=== PATIENT | female | born 1970 | race African-American/Black ===

== ENCOUNTER 2020-05-23 23:42 | Observation (INO) | payer OTHER, SELFPAY ==
[2020-05-24] MEDS ORDERED: Acetaminophen 650 MG Suppository PR PRN (01:05)
[2020-05-24] MEDS ORDERED: Acetaminophen 325 MG TAB PO PRN (01:05)
[2020-05-24] MEDS ORDERED: HYDROcodone/Acetaminophen 5/325 mg Tablet PO PRN ×2 (01:05)
[2020-05-24] MEDS ORDERED: Calcium Carbonate 500 MG ChewTAB PO PRN (01:05)
[2020-05-24] MEDS ORDERED: Guaifenesin DM 100-10/5 ML UDCUP PO PRN (01:05)
--- NOTE | 2020-05-24 01:14 | PDOC.HHP ---
Hospitalist HPI - History of Present Illness dyspnea cough chest pain History of Present Illness: Case of an 49y/o female with pmhx of htn dm hypercholesterolemia hypothyroidism and morbid obesity who comes to hospital transfer from another ED due to covid pneumonia and chest pain. patient refers she was on her usual state of health until about almost a week ago when she started having some cough. her daughter had recently tested positive for the virus for which she went to get tested on may 18. she visited and ED where she got the tested and was sent home. patient refers her dsypnea and coughing worsen and she started to get chest pain for which she returned to the ED on may 23. there she was dx with covid pneumoia with hypoxia and sent here for further evaluation and management. patient denies any fever chills n/v diarrhea, also denies diaphoresis palpitations. as stated patient did complain of some chest pain 6/10 of dull quality non radiating worsen with deep breathing Hospitalist ROS - Review of Systems All other systems reviewed; all pertinent +/- noted in HPI/Subj Hospitalist History - Past Surgical History Past Surgical History: reports: Cholecystectomy, Hysterectomy - Family History Family History: reports: diabetes mellitus, hypertension - Social History Smoking Status: Former smoker Alcohol: reports: None Drugs: reports: none - Exam General Appearance: NAD, awake alert Eye: PERRL, anicteric sclera ENT: normocephalic atraumatic, no oropharyngeal lesions Neck: supple, symmetric, no JVD Heart: RRR, no murmur, no gallops Respiratory: CTAB, no wheezes, no rales Gastrointestinal: soft, non-tender, non-distended Extremities: no cyanosis, no clubbing, no edema Skin: normal turgor, no lesions, no rashes Neurological: cranial nerve grossly intact, normal sensation to touch Musculoskeletal: normal tone, normal strength, no muscle wasting Psychiatric: normal affect, normal behavior, A&O x 3 Hospitalist H&P A/P - Problem (1) COVID-19 Code(s): U07.1 - COVID-19 Status: Acute (2) Hypoxia Code(s): R09.02 - HYPOXEMIA Status: Acute (3) Diabetes Code(s): E11.9 - TYPE 2 DIABETES MELLITUS WITHOUT COMPLICATIONS Status: Acute (4) HTN (hypertension) Code(s): I10 - ESSENTIAL (PRIMARY) HYPERTENSION Status: Acute (5) Chest pain Code(s): R07.9 - CHEST PAIN, UNSPECIFIED Status: Acute - Plan Plan: 49y/o female with the stated pmhx who comes due to covid 19 pneumonia hypoxia and chest pain covid 19 pnuemonia / hypoxia - positive test - cxr suggestive of viral pneumonia - started on rocephin and azithromycin - hypoxic with RA sat in the 90s, - 02 supplementation - f/u inflammation markers - f/u cultures - dexamethazone 6mg iv d - dvt prophylaxis chest pain - seems pluritic - negative trop - serial troponins - ekg w/o ischemic st changes - cardiac telemetry dm - ss and acc - adjust as necessary htn / hypothyrodism / hypercholesterolemia - continue home meds
[2020-05-24 01:29] VITALS: BMI 47.0
[2020-05-24] MEDS: Sodium Chloride 0.9% 1,000 ML IV SCH ×2 (01:44→21:09)
[2020-05-24] MEDS: cefTRIAXone\\ROCEPHIN 1 GM in Sodium Chloride 0.9% 100 ML IVPB SCH (01:45)
[2020-05-24] MEDS ORDERED: Dextrose 50% Abboject 50 ML SYRINGE SLOW IVP PRN (01:52)
[2020-05-24] MEDS ORDERED: Dextrose 5% in Water 1,000 ML IV PRN (01:52)
[2020-05-24] MEDS: Azithromycin 500 MG in Sodium Chloride 0.9% 250 ML 250 ML IVPB SCH (02:02)
[2020-05-24 02:51] LABS: Troponin I 0.014 ng/mL (< 0.028)
[2020-05-24 02:53] LABS: ALT (SGPT) 35 U/L (8-55); AST (SGOT) 32 U/L (5-34); Albumin 4.4 g/dL (3.5-5.0); Alkaline Phosphatase 65 U/L (40-110); Anion Gap 16 mmol/L (10-20); BUN (Urea Nitrogen) 5 mg/dL (7.0-18.7); CRP (Inflammatory) 0.89 mg/dL (= or < 0.5); Calc. Creatinine Clearance 158 mL/min (70-130); Calcium 9.3 mg/dL (7.8-10.44); Carbon Dioxide 23 mmol/L (22-29); Chloride 99 mmol/L (98-107); Estimated GFR-MDRD Greater than 90; Glucose 253 mg/dL (70-105); Potassium 3.2 mmol/L (3.5-5.1); Protein, Total 7.4 g/dL (6.0-8.3); Sodium 135 mmol/L (136-145)
[2020-05-24 02:54] LABS: Band 6 % (5-11); Hemoglobin 14.5 g/dL (12.0-16.0); Lymphocytes 45 % (21-51); MDiff Complete? YES; Mean Corpuscular HGB CONC 33.7 g/dL (32.0-36.0); Mean Corpuscular Hemoglobin 28.2 pg (27.0-31.0); Mean Corpuscular Volume 83.6 fL (78.0-98.0); Mean Platelet Volume 9.1 fL (7.4-10.4); Monocytes 4 % (0-10); Neutrophil 45 % (42-75); Platelet Count 136 thou/uL (130-400); Platelet Morphology Comment Appears Adequate; RBC Distribution Width 11.2 % (11.5-14.5); Red Blood Cell (RBC) Count 5.16 mill/uL (4.20-5.40)
[2020-05-24 03:37] LABS: Bacteria/HPF 3+ HPF (None Seen); Bilirubin Negative (Negative); Blood, Urine Negative (Negative); Clarity Clear (Clear); Glucose, Urine (Dipstick) >=1000 mg/dL (Negative); Ketone, Urine 60 mg/dL (Negative); Leukocyte Negative Leu/uL (Negative); Nitrite Negative (Negative); Protein, Urine (Dipstick) Negative (Neg-Trace); RBC/HPF 0-3 HPF (0-3); Squamous Epithelial 0-3 HPF (0-3)
[2020-05-24 05:56] LABS: Troponin I 0.011 ng/mL (< 0.028)
[2020-05-24] MEDS: Levothyroxine 175 MCG TAB PO SCH (06:05)
[2020-05-24] MEDS: Insulin Regular 300 UNITS/3 ML VIAL SC PRN ×4 (06:08→21:20)
[2020-05-24] MEDS: Dexamethasone 4 mg/ml Vial SLOW IVP SCH (08:34)
[2020-05-24] MEDS: Lisinopril/Hydrochlorothiazide 10 mg/12.5 mg Tablet PO SCH ×2 (08:35→12:53)
[2020-05-24] MEDS: Enoxaparin Sodium 40 MG/0.4 ML SYRINGE SC SCH (08:35)
--- NOTE | 2020-05-24 18:27 | CON ---
DATE OF CONSULTATION: 05/24/2020 REASON: COVID pneumonia. HISTORY OF PRESENT ILLNESS: A 49-year-old with history of obesity, type 2 diabetes, hypothyroidism, and hypertension, who has been ill since the of this month about 6 days ago with some chest pain and some cough with little sputum production. No fever or chills. No headaches. No change in taste or ability to smell. No abdominal pain or diarrhea. No genitourinary symptoms. PAST MEDICAL HISTORY: Type 2 diabetes, hypertension, hyperlipidemia, hypothyroidism, and GERD. 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 Former smoker. . ALLERGIES: NONE. FAMILY HISTORY: There is a history of COVID in her daughter. PHYSICAL EXAMINATION: VITAL SIGNS: Temperature max 99.3, blood pressure 113/72, pulse 88, breathing 16 times a minute, and O2 saturations are 100% on room air. SKIN: Normal. No lymphadenopathy. HEENT: Unremarkable. LUNGS: Clear to auscultation and percussion. HEART: S1 and S2, regular rate. ABDOMEN: Soft, not distended or tender. No ascites. No bladder distention. MUSCULOSKELETAL: No joint inflammatory activity. NEUROLOGIC: Nonfocal. LABORATORY DATA: White cell count 3.0, hemoglobin 14, platelets 136, within normal differential. D-dimer 1.16. Sodium 135, potassium 3.2, creatinine 0.76. Liver profile normal. CRP 0.89. Chest x-ray with bilateral opacities. ASSESSMENT: Type 2 diabetes, hypertension, obesity, and COVID pneumonia. The patient is saturating quite well on room air, not having a lot of symptoms, but the chest x-ray shows diffuse bilateral opacities. She is at her 6th-day of illness and there is a significant risk of progression of her illness as it goes into this second stage with potential for a serious inflammatory process. We will have to continue monitoring closely. At the moment, she would not merit Decadron or any other intervention. I do not think she needs Rocephin or azithromycin. She has already been started on Decadron. Monitor inflammatory markers to help with discharge planning depending on clinical course. She is not eligible for remdesivir/or plasma at this point in time. Job ID: [id number]
[2020-05-24] MEDS: Atorvastatin Calcium 10 MG TAB PO SCH (21:09)
[2020-05-25] MEDS: cefTRIAXone\\ROCEPHIN 1 GM in Sodium Chloride 0.9% 100 ML IVPB SCH (01:17)
[2020-05-25] MEDS: Azithromycin 500 MG in Sodium Chloride 0.9% 250 ML 250 ML IVPB SCH (02:01)
[2020-05-25] MEDS: Insulin Regular 300 UNITS/3 ML VIAL SC PRN ×3 (03:58→17:37)
[2020-05-25] MEDS: Levothyroxine 175 MCG TAB PO SCH (03:58)
[2020-05-25 08:29] LABS: #Lymphocytes 1.3 thou/uL (1.20-3.40); #Monocytes 0.2 thou/uL (0.11-0.59); #Neutrophils 2.2 thou/uL (1.40-6.50); %Basophils 0.7 % (0.0-1.0); %Eosinophils 0.2 % (0.0-10.0); %Lymphocytes 35.1 % (21.0-51.0); %Monocytes 5.1 % (0.0-10.0); %Neutrophils 58.9 % (42.0-75.0); Hemoglobin 12.6 g/dL (12.0-16.0); Mean Corpuscular HGB CONC 33.1 g/dL (32.0-36.0); Mean Corpuscular Hemoglobin 27.7 pg (27.0-31.0); Mean Corpuscular Volume 83.7 fL (78.0-98.0); Platelet Count 155 thou/uL (130-400); RBC Distribution Width 11.1 % (11.5-14.5); Red Blood Cell (RBC) Count 4.55 mill/uL (4.20-5.40); White Blood Cell (WBC) Count 3.8 thou/uL (4.8-10.8)
[2020-05-25 08:48] LABS: Anion Gap 11 mmol/L (10-20); BUN (Urea Nitrogen) 4 mg/dL (7.0-18.7); Calc. Creatinine Clearance 174 mL/min (70-130); Calcium 9.3 mg/dL (7.8-10.44); Carbon Dioxide 26 mmol/L (22-29); Chloride 102 mmol/L (98-107); Estimated GFR-MDRD Greater than 90; Glucose 218 mg/dL (70-105); Potassium 3.3 mmol/L (3.5-5.1); Sodium 136 mmol/L (136-145)
[2020-05-25] MEDS: Dexamethasone 4 mg/ml Vial SLOW IVP SCH (08:50)
[2020-05-25] MEDS: Enoxaparin Sodium 40 MG/0.4 ML SYRINGE SC SCH ×2 (08:51→19:29)
[2020-05-25] MEDS: Lisinopril/Hydrochlorothiazide 10 mg/12.5 mg Tablet PO SCH (08:51)
[2020-05-25] MEDS ORDERED: Furosemide 20 MG/2 ML VIAL SLOW IVP SCH (10:00)
[2020-05-25] MEDS ORDERED: Potassium Chloride 20 MEQ TAB PO SCH (15:15)
--- NOTE | 2020-05-25 17:48 | PDOC.HOSPP ---
- Subjective Encounter Date: 05/25/20 Encounter Time: 16:30 Subjective: Patient was seen for follow-up regarding COVID-19 pneumonia. She reports feeling better. She reports cough. She denies fevers. - Objective Vital Signs & Weight: Vital Signs (12 hours) Temp Pulse Resp BP Pulse Ox 05/25/20 15:45 99.0 F 93 19 114/68 97 05/25/20 11:50 98.6 F 88 16 112/74 100 05/25/20 09:15 98.2 F 95 20 127/80 100 05/25/20 08:51 84 Weight Admit Weight 241 lb Weight 241 lb I&O: 05/24/20 05/25/20 05/26/20 06:59 06:59 06:59 Intake Total 1804 Output Total 2300 Balance -496 Result Diagrams: 05/25/20 08:03 05/25/20 08:03 Additional Labs: Accuchecks 05/25/20 05/25/20 05/25/20 15:41 13:01 03:58 POC Glucose 314 H 329 H 217 H 05/24/20 21:05 POC Glucose 231 H Labs and MAR were reviewed by me. Hospitalist ROS - Review of Systems Constitutional: denies: fever, chills, sweats, weakness, malaise Respiratory: reports: cough, dry. denies: shortness of breath, hemoptysis, SOB with excertion, pleuritic pain, sputum, wheezing Cardiovascular: denies: chest pain, palpitations, orthopnea, paroxysmal noc. dyspnea, edema, light headedness Gastrointestinal: denies: nausea, vomiting, abdominal pain, diarrhea, constipation, melena, hematochezia Genitourinary: denies: dysuria, frequency, incontinence, hematuria, retention - Medication Medications: Active Medications Generic Name Dose Route Start Last Admin Trade Name Freq PRN Reason Stop Dose Admin Hydrocodone Bitart/Acetaminophen 1 tab 05/24/20 01:05 05/25/20 16:22 [place] 5/325 PO 1 tab Q4H PRN Administration Moderate Pain (4-6) Atorvastatin Calcium 10 mg 05/24/20 21:00 05/24/20 21:09 Lipitor PO 10 mg HS BALBINA Administration Dexamethasone 6 mg 05/24/20 09:00 05/25/20 08:50 Decadron SLOW IVP 6 mg DAILY BALBINA Administration Lisinopril/HCTZ 1 tab 05/24/20 09:00 05/25/20 08:51 Prinizide 10-12.5 PO 1 tab DAILY BALBINA Administration Azithromycin 500 mg/ Sodium 250 mls @ 250 mls/hr 05/24/20 02:00 05/25/20 02: 01 Chloride IVPB 250 mls Q24HR BALBINA Administration Ceftriaxone Sodium 1 gm/ 100 mls @ 200 mls/hr 05/24/20 01:30 05/25/20 01:17 Sodium Chloride IVPB 100 mls Q24HR BALBINA Administration Sodium Chloride 1,000 mls @ 50 mls/hr 05/24/20 01:15 05/24/20 21:09 Normal Saline 0.9% IV 1,000 mls .Q20H BALBINA Administration Insulin Human Regular 0 units 05/24/20 01:52 05/25/20 17:37 Humulin R SC 5 units .MILD SLIDING SCALE PRN Administration Mild Correctional Scale Levothyroxine Sodium 175 mcg 05/24/20 06:00 05/25/20 03:58 Synthroid PO 175 mcg 0600 BALBINA Administration Sodium Chloride 10 ml 05/24/20 09:00 05/25/20 08:51 Flush - Normal Saline IVF 10 ml Q12HR BALBINA Administration - Exam General - other findings: Morbid obesity Eye: anicteric sclera ENT: moist mucosa Neck: supple, symmetric, no thyromegaly, no lymphadenopathy Heart: RRR, no gallops, no rubs, normal peripheral pulses Respiratory: CTAB, no wheezes, no rales, no ronchi, normal chest expansion Gastrointestinal: soft, non-tender, normal bowel sounds, distended Extremities: no cyanosis Psychiatric: normal affect, normal behavior, A&O x 3 Hosp A/P - Plan -Assessment (1) COVID-19 Code(s): U07.1 - COVID-19 Status: Acute (2) Hypoxia Code(s): R09.02 - HYPOXEMIA Status: Acute (3) Diabetes Code(s): E11.9 - TYPE 2 DIABETES MELLITUS WITHOUT COMPLICATIONS Status: Chronic (4) HTN (hypertension) Code(s): I10 - ESSENTIAL (PRIMARY) HYPERTENSION Status: Chronic (5) Chest pain Code(s): R07.9 - CHEST PAIN, UNSPECIFIED Status: Chronic - Plan covid 19 pnuemonia / hypoxia - continue dexamethasone - f/u inflammation markers - dvt prophylaxis dm - continue accuchecks and ISS htn / hypothyrodism / hypercholesterolemia - stable chest pain - resolved
[2020-05-25] MEDS ORDERED: HumaLOG 300 UNITS/3 ML VIAL SC PRN (19:04)
[2020-05-25] MEDS: Atorvastatin Calcium 10 MG TAB PO SCH (19:29)
[2020-05-25] MEDS: Sodium Chloride 0.9% 1,000 ML IV SCH (19:30)
[2020-05-26] MEDS: cefTRIAXone\\ROCEPHIN 1 GM in Sodium Chloride 0.9% 100 ML IVPB SCH (01:00)
[2020-05-26] MEDS: Azithromycin 500 MG in Sodium Chloride 0.9% 250 ML 250 ML IVPB SCH (03:34)
[2020-05-26 05:28] LABS: Anion Gap 15 mmol/L (10-20); BUN (Urea Nitrogen) 6 mg/dL (7.0-18.7); CRP (Inflammatory) 1.43 mg/dL (= or < 0.5); Calc. Creatinine Clearance 179 mL/min (70-130); Calcium 9.7 mg/dL (7.8-10.44); Carbon Dioxide 24 mmol/L (22-29); Chloride 102 mmol/L (98-107); Estimated GFR-MDRD Greater than 90; Glucose 216 mg/dL (70-105); Potassium 3.9 mmol/L (3.5-5.1); Sodium 137 mmol/L (136-145)
[2020-05-26 05:52] LABS: Band 13 % (5-11); Eosinophils 1 % (0-10); Hemoglobin 12.7 g/dL (12.0-16.0); Lymphocytes 27 % (21-51); MDiff Complete? YES; Mean Corpuscular HGB CONC 32.9 g/dL (32.0-36.0); Mean Corpuscular Hemoglobin 27.4 pg (27.0-31.0); Mean Corpuscular Volume 83.4 fL (78.0-98.0); Mean Platelet Volume 8.9 fL (7.4-10.4); Monocytes 4 % (0-10); Neutrophil 55 % (42-75); Platelet Count 186 thou/uL (130-400); Platelet Morphology Comment Appears Adequate; RBC Distribution Width 11.2 % (11.5-14.5); Red Blood Cell (RBC) Count 4.63 mill/uL (4.20-5.40); White Blood Cell (WBC) Count 4.7 thou/uL (4.8-10.8)
[2020-05-26] MEDS: Levothyroxine 175 MCG TAB PO SCH (05:54)
[2020-05-26] MEDS: Insulin Regular 300 UNITS/3 ML VIAL SC PRN (05:54)
[2020-05-26] MEDS: Dexamethasone 4 mg/ml Vial SLOW IVP SCH (08:59)
[2020-05-26] MEDS: Lisinopril/Hydrochlorothiazide 10 mg/12.5 mg Tablet PO SCH (08:59)
[2020-05-26] MEDS: Enoxaparin Sodium 40 MG/0.4 ML SYRINGE SC SCH (09:00)
[2020-05-26 10:19] VITALS: BP 121/77; TEMP 98.2
[2020-05-26] MEDS ORDERED: Cefdinir 300 MG CAP PO SCH (11:15)
--- NOTE | 2020-05-26 12:43 | DIS ---
DATE OF ADMISSION: 05/24/2020 DATE OF DISCHARGE: 05/26/2020 PRIMARY CARE PROVIDER: [facility] in [place]. DISCHARGE DIAGNOSES: 1. COVID-19 pneumonia. 2. Hypokalemia. 3. Uncontrolled diabetes mellitus. CONDITION: Condition of the patient on the day of discharge: Stable. I assessed Ms. Kelly on the day of discharge. She denies any chest pain or shortness of breath. Vital signs are stable. DISCHARGE MEDICATIONS: 1. Dexamethasone 6 mg daily for one more week. 2. Cefdinir 600 mg daily for one more week. 3. She has been advised to increase her glipizide to 10 mg 2 times a day while she is taking dexamethasone, then to decrease to 10 mg daily. 4. Lisinopril/hydrochlorothiazide 10/12.5 mg daily. 5. Lovastatin 40 mg at bedtime. 6. Metformin 1000 mg 2 times a day. CONSULTATIONS DURING THIS HOSPITALIZATION: Infectious Diseases, Dr. Santacruz. HOSPITAL COURSE: Ms. Kelly is a pleasant 49-year-old lady, who was admitted to [facility] on May 24, 2020, for COVID-19 pneumonia. Chest x-ray at the time of admission also suggested some pulmonary vascular congestion. However, her BNP was less than 10. She was not hypoxic. She was started on dexamethasone and intravenous antibiotics. She was seen by Infectious Disease Service. Her inflammatory markers were also trending down. She has been advised to check her blood sugars 3 times a day and show the readings to her primary care provider. She is also aware of the possibility of decompensation following discharge. She has been advised to check her oxygen levels and to seek medical help if her oxygen saturations drop below 90%. POST-ACUTE CARE FOLLOWUP: With primary care provider in 1 day. DIET: Heart-healthy and diabetic. ACTIVITY: As tolerated. DISCHARGE DESTINATION: Home. TIME SPENT: Total amount of time spent in coordinating this discharge: 32 minutes. Job ID: [id number]
== END 2020-05-26 13:30 | disposition home or self-care (01) ==
LOC: 2SW 05-24 00:54
PROVIDERS: ADMIT Internal Medicine; ATTEND Internal Medicine
DX: U07.1 COVID-19 (principal); J12.89 Other viral pneumonia; E87.6 Hypokalemia; E11.9 Type 2 diabetes mellitus without complications; I10 Essential (primary) hypertension; E03.9 Hypothyroidism, unspecified; E78.00 Pure hypercholesterolemia, unspecified; E66.01 Morbid (severe) obesity due to excess calories; Z68.42 Body mass index [BMI] 45.0-49.9, adult; Z87.891 Personal history of nicotine dependence; Z79.84 Long term (current) use of oral hypoglycemic drugs; Z79.899 Other long term (current) drug therapy
CPT/HCPCS: 36415; 36416; 80048; 80053; 81001; 82728; 83615; 83880; 84145; 84484; 85007; 85025; 85027; 85379; 86140; 87040; 87070; 87205; 96361; 96365; 96366; 96372; 96375; 96376; G0378; J0456; J0696; J1100; J1650; J1815; J1940; J3490; J7050